=== PATIENT | male | born 1960 | race Caucasian/White ===

== ENCOUNTER 2018-04-06 14:59 | Emergency (ER) | payer MEDICAID, OTHER ==
[~2018-04-06] VITALS: Ht 172.7 cm; Wt 87.1 kg
[2018-04-06 14:59] VITALS: BP 158/103
== END 2018-04-06 16:46 | disposition home or self-care (01) ==
LOC: ER 15:04
DX: M54.5 Low back pain (principal); M25.561 Pain in right knee; M25.562 Pain in left knee; M43.16 Spondylolisthesis, lumbar region; E11.9 Type 2 diabetes mellitus without complications; I10 Essential (primary) hypertension; F10.10 Alcohol abuse, uncomplicated; F17.200 Nicotine dependence, unspecified, uncomplicated
CPT/HCPCS: 71045-TC; 72100-TC; 73560-TC; A4606; Z7610